=== PATIENT | female | born 1995 | race Asian ===

== ENCOUNTER 2016-10-04 00:56 | Emergency (ER) | payer BC ==
[~2016-10-04] VITALS: Ht 167.6 cm; Wt 68.6 kg
[2016-10-04 01:00] VITALS: Ht 167.6 cm; Wt 68.6 kg
[2016-10-04] MEDS ORDERED: SODIUM CHLORIDE 0.9% 1000ML 1,000 ML IV STA ×2 (01:18)
[2016-10-04] MEDS ORDERED: ONDANSETRON INJ 2 MG/ML 2 ML VIAL IV STA (01:18)
[2016-10-04] MEDS ORDERED: PANTOprazole INJ 80 MG in DEXTROSE 5% 100ML 100 ML IV SCH (01:30)
[2016-10-04 01:52] LABS: BASO % 0.5 %; BASO ABS # 0.03 K/uL (0-0.2); COMPLETE YES; EOS % 3.9 %; HEMATOCRIT 35.9 % (37-47); IG% 0.2 %; LYMPH ABS # 2.57 K/uL (1.2-3.4); MEAN CELL VOLUME 87.8 fL (80-100); MEAN CORPUSCULAR HEMOGLOBIN 30.6 pg (25-34); MEAN CORPUSCULAR HGB CONC 34.8 g/dl (32-36); MEAN PLATELET VOLUME 9.4 fL (7.4-10.4); MONO % 9.8 %; NEUT % 45.6 %; PLATELET COUNT 266 K/uL (130-400); RED BLOOD COUNT 4.09 M/uL (4.2-5.4); WHITE BLOOD COUNT 6.42 K/uL (4.8-10.8)
[2016-10-04] MEDS ORDERED: BCPILLS PO (01:59)
[2016-10-04 02:07] LABS: PARTIAL THROMBOPLASTIN RATIO 1.1; PROTHROMBIN TIME (PATIENT) 10.7 SECONDS (9.0-12.0)
[2016-10-04 02:07] LABS: URINE APPEARANCE CLEAR (CLEAR); URINE BILIRUBIN NEG (NEG); URINE COLOR YELLOW; URINE EPITHELIAL CELL AUTO >30 /lpf (0-5); URINE NITRITE NEG (NEG); URINE PH >= 9.0 (4.5-7.5); URINE SPECIFIC GRAVITY 1.015 (1.000-1.030); UROBILINOGEN NEG (NEG); ZZUR CULT IF INDIC CLEAN CATCH NO
[2016-10-04 02:10] LABS: BUN/CREATININE RATIO 11.7 (10-20); CALCIUM 8.4 mg/dl (8.5-10.1); CREATININE 0.7 mg/dl (0.60-1.20); POTASSIUM 3.7 mmol/L (3.5-5.1)
[2016-10-04 02:11] LABS: MANUAL MICROSCOPIC REQUIRED? NO; REVIEW REQ? NO
[2016-10-04 02:12] LABS: PREG INTERNAL NEGATIVE QC NEG CLEAR BACKGROUND; PREG INTERNAL POSITIVE QC POS CONTROL LINE
[2016-10-04] MEDS ORDERED: LIDOCAINE HCL 2% VISC SOLN 20 ML UDC PO STA (03:01)
[2016-10-04] MEDS ORDERED: ALUMINUM/MAGNESIUM SUSP 30 ML UDC PO STA (03:01)
--- NOTE | 2016-10-04 03:06 | EMERGENCY ROOM VISIT NOTE ---
History First contact with patient: 01:04 Chief Complaint: VOMITING Stated Complaint: THROWING UP BLOOD,FAINT History of Present Illness The patient is a 20 year old female who presents to the Emergency Room with complaints of nausea and vomiting for the past several hours who woke up feeling nauseous this morning. Patient states she threw up a few times and had some red stringy blood in it. No clots. no cupfull of blood. Patients still complains of nausea. Patient denies chest pain, dyspnea, fever, chills, diarrhea, black or blood in the stool, back pain, abdominal pain, lightheadedness or dizziness. No coffee-ground emesis. No history GI bleed. She did take one Motrin this morning as she was feeling ill. Review of Systems See HPI for pertinent positives & negatives. A total of 10 systems reviewed and were otherwise negative. Past Medical/Surgical History [place] teeth extraction Social History Smoking Status: Never Smoker Smokeless Tobacco Use: No Alcohol Use: occasionally Drug Use: none Occupation Status: [employer] student Current/Historical Medications Scheduled Control Pills ( Control Pills), 1 TAB PO DAILY Allergies Coded Allergies: Sulfa Antibiotics (Verified Allergy, Unknown, UNKNOWN, 10/04/16) Physical Exam Vital Signs Date Time Temp Pulse Resp B/P Pulse Ox O2 Delivery O2 Flow Rate FiO2 10/04/16 02:12 74 10/04/16 01:31 Room Air 10/04/16 01:00 36.6 67 16 126/83 97 Room Air Physical Exam VITALS: Vitals are noted on the nurse's note and reviewed by myself. Vital signs stable. GENERAL: Pleasant female, in no acute distress, nondiaphoretic, well-developed well-nourished. SKIN: The skin was without rashes, erythema, edema, or bruising. There is no tenting of the skin. Capillary reflex less than 2 seconds. HEAD: Normocephalic atraumatic. EARS: External auditory canals clear, tympanic membranes pearly barry without erythema or effusion bilaterally. EYES: Pupils equal round and reactive to light and accommodation. Conjunctivae without injection, sclerae without icterus. Extraocular movements intact. NOSE: Patent, turbinates without inflammation or discharge. No sinus tenderness. MOUTH: Mucous membranes moist. Pharynx without erythema or exudate. Uvula midline. Airway patent. Tongue does not deviate. NECK: Supple without nuchal rigidity. No lymphadenopathy. No thyromegaly. Cervical spine is nontender. No JVD. HEART: Regular rate and rhythm without murmurs gallops or rubs. LUNGS: Clear to auscultation bilaterally without wheezes, rales or rhonchi. No dullness to percussion. No retractions or accessory muscle use. ABDOMEN: Positive bowel sounds x 4. Normal tympanic percussion. Soft, nontender, without masses or organomegaly. Sosa sign negative. No guarding or rebound tenderness. Rectal exam: Brown stool, guaiac-negative MUSCULOSKELETAL: No muscle atrophy, erythema, or edema noted. NEURO: Patient was alert and oriented to person place and time. Normal sensation to light and sharp touch. No focal neurological deficits. Medical Decision & Procedures Laboratory Results 10/04/16 01:40 Red Blood Count 4.09, Mean Corpuscular Volume 87.8, Mean Corpuscular Hemoglobin 30.6, Mean Corpuscular Hemoglobin Concent 34.8, Mean Platelet Volume 9.4, Neutrophils (%) (Auto) 45.6, Lymphocytes (%) (Auto) 40.0, Monocytes (%) (Auto) 9.8, Eosinophils (%) (Auto) 3.9, Basophils (%) (Auto) 0.5, Neutrophils # (Auto) 2.93, Lymphocytes # (Auto) 2.57, Monocytes # (Auto) 0.63, Eosinophils # (Auto) 0.25, Basophils # (Auto) 0.03 10/04/16 01:40 Test 10/04/16 01:40 10/04/16 01:45 White Blood Count 6.42 K/uL (4.8-10.8) Red Blood Count 4.09 M/uL (4.2-5.4) Hemoglobin 12.5 g/dL (12.0-16.0) Hematocrit 35.9 % (37-47) Mean Corpuscular Volume 87.8 fL (80-100) Mean Corpuscular Hemoglobin 30.6 pg (25-34) Mean Corpuscular Hemoglobin Concent 34.8 g/dl (32-36) Platelet Count 266 K/uL (130-400) Mean Platelet Volume 9.4 fL (7.4-10.4) Neutrophils (%) (Auto) 45.6 % Lymphocytes (%) (Auto) 40.0 % Monocytes (%) (Auto) 9.8 % Eosinophils (%) (Auto) 3.9 % Basophils (%) (Auto) 0.5 % Neutrophils # (Auto) 2.93 K/uL (1.4-6.5) Lymphocytes # (Auto) 2.57 K/uL (1.2-3.4) Monocytes # (Auto) 0.63 K/uL (0.11-0.59) Eosinophils # (Auto) 0.25 K/uL (0-0.5) Basophils # (Auto) 0.03 K/uL (0-0.2) RDW Standard Deviation 41.5 fL (36.4-46.3) RDW Coefficient of Variation 12.9 % (11.5-14.5) Immature Granulocyte % (Auto) 0.2 % Immature Granulocyte # (Auto) 0.01 K/uL (0.00-0.02) Prothrombin Time 10.7 SECONDS (9.0-12.0) Prothromb Time International Ratio 1.0 (0.9-1.1) Activated Partial Thromboplast Time 28.5 SECONDS (21.0-31.0) Partial Thromboplastin Ratio 1.1 Anion Gap 8.0 mmol/L (3-11) Est Creatinine Clear Calc Drug Dose 119.9 ml/min Estimated GFR () 144.6 Estimated GFR (Non- 124.7 BUN/Creatinine Ratio 11.7 (10-20) Calcium Level 8.4 mg/dl (8.5-10.1) Total Bilirubin 0.3 mg/dl (0.2-1) Direct Bilirubin 0.1 mg/dl (0-0.2) Aspartate Amino Transf (AST/SGOT) 108 U/L (15-37) Alanine Aminotransferase (ALT/SGPT) 58 U/L (12-78) Alkaline Phosphatase 68 U/L (45-117) Total Protein 6.6 gm/dl (6.4-8.2) Albumin 3.4 gm/dl (3.4-5.0) Lipase 138 U/L (73-393) Human Chorionic Gonadotropin, Qual NEG (NEG) Urine Color YELLOW Urine Appearance CLEAR (CLEAR) Urine pH >= 9.0 (4.5-7.5) Urine Specific [place] 1.015 (1.000-1.030) Urine Protein NEG (NEG) Urine Glucose (UA) NEG (NEG) Urine Ketones NEG (NEG) Urine Occult Blood NEG (NEG) Urine Nitrite NEG (NEG) Urine Bilirubin NEG (NEG) Urine Urobilinogen NEG (NEG) Urine Leukocyte Esterase TRACE (NEG) Urine WBC (Auto) 1-5 /hpf (0-5) Urine RBC (Auto) 0-4 /hpf (0-4) Urine Hyaline Casts (Auto) 0 /lpf (0-5) Urine Epithelial Cells (Auto) >30 /lpf (0-5) Urine Bacteria (Auto) NEG (NEG) Medications Administered Medications (Trade) Dose Ordered Sig/Oz Route Start Time Stop Time Status Last Admin Dose Admin Pantoprazole Sodium/Dextrose (Protonix Inj/D5 100ml) 120 ml @ 400 mls/hr NOW IV 10/04/16 01:30 11/03/16 01:29 10/04/16 01:43 400 MLS/HR Ondansetron HCl 4 mg 4 mg NOW STAT IV 10/04/16 01:18 10/04/16 01:21 DC 10/04/16 01:44 4 MG Sodium Chloride (Nss 1000ml) 1,000 ml @ 999 mls/hr Q1H1M STAT IV 10/04/16 01:18 10/04/16 02:18 DC 10/04/16 01:44 999 MLS/HR ED Course Prior records/ancillary studies reviewed. Triage Nursing notes reviewed. Additional history obtained from the friend. The patient's history was concerning for possible gastrointestinal bleeding. Differential diagnosis: Etiologies such as diverticulosis, AVM, coagulopathy, colitis, inflammatory bowel disease, malignancy, Lanie-Wolfe tear, esophagitis, peptic ulcer disease , variceal bleed, gastritis, epistaxis, fissure, hemorrhoids, as well as others were entertained. Physical exam: As above. The patients vital signs were stable. ER treatment provided: Protonix, IV fluids, Zofran On reassessment the patient felt better. Diagnostics interpreted by me: The labs revealed stable H&H This appears to be consistent with vomiting with a small amount of blood most likely from Lanie-Wolfe tear. Patient was well-appearing. She is tolerating fluids. She had no more episodes of vomiting while in the ER. Stable H&H. She is advised take Protonix daily for the next 2 weeks and to follow-up with health services in a few days or here in the ER sooner for vomiting blood, black stool, worsening signs or symptoms or as needed. Patient did not have an acute abdomen on exam. She is well-appearing. By the evaluation outlined above emergent etiologies such as esophageal perforation, peptic ulcer disease, variceal bleed, coagulopathy, gastritis, epistaxis, malignancy, inflammatory bowel disease, as well as others were deemed relatively unlikely. The pt informed about the findings as listed above. All questions were answered and pleased with the treatment. Return instructions were outlined and the patient was discharged in stable condition. Outpatient prescription management: Protonix, Zofran Referral: The patient was referred back to their primary care physician for follow-up in 2 to 3 days for a recheck of the current condition Case reviewed with my attending Medical Decision as above Impression Primary Impression: Lanie-Wolfe tear Additional Impression: Vomiting Departure Information Dispostion Home / Self-Care Condition GOOD Referrals [facility] (PCP) Patient Instructions My [facility] Additional Instructions DO NOT drive, drink alcohol, operate machinery, or perform dangerous activities today. You were given medications in the ER that can affect your ability to safely function or operate a vehicle. Protonix 40 m tablet daily for the next 2 weeks. Take this on an empty stomach. Zofran(odansetron) tablets 4mg: Take one and allow it to dissolve in your mouth every four to six hours as needed for nausea or vomiting. Acetaminophen(Tylenol) may be used for fever or pain. Use 1000mg every six hours as needed. Avoid using more than 3000mg in a 24 hour period. Rest and drink plenty of fluids as tolerated. Slow sips of water or sports drinks are recommended instead of large amounts all at once. Continue current medications. Once your stomach is settled start with a clear liquid diet (jello, soup broth, etc.) and then advance as tolerated. You should avoid full, heavy meals for about 24 hrs from the time your symptoms resolved. Return to the ER for persistent vomiting, vomiting blood, fevers, abdominal pain , chest pains, difficulty breathing, black or bloody stools, worsening of your condition, or as needed. Follow up with your primary physician in 2-3 days for a recheck of your current condition. Problem Qualifiers
[2016-10-04] MEDS ORDERED: PANT40TA PO (03:07)
[2016-10-04] MEDS ORDERED: ONDANSETRON HOME PACK 4MG OD TAB PO ONE (03:15)
[2016-10-04 03:22] VITALS: BP 120/77; PULSE 57; TEMP 36.6; O2SAT 98
== END 2016-10-04 03:22 | disposition home or self-care (01) ==
LOC: C.EDB 00:58 → C.EDA 03:22
DX: K22.6 Gastro-esophageal laceration-hemorrhage syndrome (principal); Z98.818 Other dental procedure status; Z79.3 Long term (current) use of hormonal contraceptives; Z88.2 Allergy status to sulfonamides